=== PATIENT | male | born 1985 | race Caucasian/White ===

== ENCOUNTER 2021-01-22 20:51 | Emergency (ER) | payer OTHER ==
[~2021-01-22] VITALS: Ht 180.3 cm; Wt 97.5 kg
== END 2021-01-22 22:28 | disposition home or self-care (01) ==
LOC: ER 20:51
DX: R50.9 Fever, unspecified (principal); Z20.822 Contact with and (suspected) exposure to COVID-19

== ENCOUNTER 2025-03-31 12:50 | Emergency (ER) | payer OTHER ==
[~2025-03-31] VITALS: Ht 180.3 cm; Wt 104.3 kg
[2025-03-31 14:00] VITALS: BP 165/92; O2SAT 98
[2025-03-31] MEDS ORDERED: SUCRALFATE 1 G TABLET PO ONE (16:15)
[2025-03-31] MEDS ORDERED: ONDANSETRON HCL 2 MG/ML VIAL IV ONE (16:15)
[2025-03-31] MEDS ORDERED: FAMOTIDINE/PF 20 MG/2 ML VIAL IV ONE (16:15)
[2025-03-31] MEDS ORDERED: ONDANSETRON HCL 2 MG/ML VIAL ONE (16:28)
[2025-03-31] MEDS ORDERED: FAMOTIDINE/PF 20 MG/2 ML VIAL ONE (16:28)
[2025-03-31 17:00] LABS: BASO % 0.8 % (0.1-1.2); EOS # 0.31 (0.04-0.54); HEMATOCRIT 44.9 % (40.1-51.0); HEMOGLOBIN 14.6 g/dL (13.7-17.5); LYMPH # 3.29 (1.18-3.74); LYMPH % 32.1 % (19.3-53.1); MEAN CORPUSCULAR HEMOGLOBIN 28.8 pg (25.6-32.2); MONO # 0.65 (0.24-0.82); MONO % 6.3 % (4.7-12.5); NEUT % 57.5 % (34.0-71.1); PLATELET COUNT 279 K/uL (163-369); RED BLOOD COUNT 5.07 M/uL (4.63-6.08); RED CELL DISTRIBUTION WIDTH 12.5 % (11.6-14.4)
[2025-03-31 17:44] LABS: ALBUMIN 3.9 gm/dL (3.4-5.0); BILIRUBIN TOTAL 0.52 mg/dL (0.3-1.2); BILIRUBIN,CONJUGATED 0.14 mg/dL (0.0-0.2); BILIRUBIN,UNCONJUGATED 0.38 mg/dL (0.0-0.6); CALCIUM 9.8 mg/dL (8.5-10.1); CREATININE SERUM 1.29 mg/dL (0.70-1.30); GFR 62.33; GLOBULINA 4.8 G/DL (2.4-3.5); POTASSIUM 4.27 mEq/L (3.5-5.1); TOTAL PROTEIN 8.7 gm/dL (6.4-8.2)
[2025-03-31] MEDS ORDERED: PEPCID AC20 MG PO (18:51)
[2025-03-31] MEDS ORDERED: CARAFATE1 GM PO (18:51)
== END 2025-03-31 20:20 | disposition home or self-care (01) ==
LOC: ER 13:15
PROVIDERS: Emergency Medicine
DX: K29.70 Gastritis, unspecified, without bleeding (principal); R10.13 Epigastric pain